=== PATIENT | male | born 1995 | race Caucasian/White ===

== ENCOUNTER 2024-05-22 14:27 | Outpatient (REF) | payer MEDICAID, SELFPAY ==
--- NOTE | ~2024-05-22 | XR_ITS ---
EXAMINATION: XR CHEST CLINICAL INFORMATION: Cough, shortness of breath COMPARISON: None available. TECHNIQUE: 2 views of the chest were obtained. FINDINGS: No significant abnormality is noted involving the heart, lungs, mediastinum, bony thorax or soft tissues. XR/XR chest 2V IMPRESSION: Unremarkable examination. Electronically signed by: Dianna Salinas MD 06/14/2024 01:16 PM EDT RP
[2024-05-22 15:02] LABS: MANUAL DIFF FLAG NO
[2024-05-22 15:15] LABS: Basophils Absolute Auto 0.1 X10*3/uL (0.0-0.2); Basophils Percent Auto 0.9 % (0-2); Eosinophils Absolute Auto 0.2 X10*3/uL (0.0-0.4); Eosinophils Percent Auto 2.7 % (0-4); Hematocrit 46.4 % (42.0-52.0); Hemoglobin 15.6 g/dl (14.0-18.0); Imm Gran Abs Auto 0.03 X10*3/uL (0.00-0.03); Imm Gran Pct Auto 0.4 % (0.0-0.4); Lymphocytes Absolute Auto 2.3 X10*3/uL (1.2-4.9); Lymphocytes Percent Auto 30.8 % (20-40); Mean Corpuscular HGB Conc 33.6 g/dl (31.0-36.0); Mean Corpuscular Hemoglobin 29.8 pg (27.0-33.0); Mean Corpuscular Volume 88.7 fL (80.0-98.0); Mean Platelet Volume 9.1 fL (9.4-12.4); Monocytes Absolute Auto 0.7 X10*3/uL (0.1-1.2); Monocytes Percent Auto 9.1 % (2-11); Neutrophils Absolute Auto 4.2 x10*3/uL (2.0-8.3); Neutrophils Percent Auto 56.1 % (45-73); Platelet Count 314 X10*3/uL (160-400); Red Blood Count 5.23 X10*6/uL (4.60-5.80); Red Cell Distribution Width 13.3 % (11.0-16.0); White Blood Count 7.5 X10*3/uL (4.8-10.8)
[2024-05-22 15:45] LABS: Alanine Aminotransferase 10 U/L (0-40); Albumin Level 4.5 g/dL (3.5-5.0); Alkaline Phosphatase 67 U/L (39-117); Anion Gap 11 (12-20); Aspartate Amino Transferase 15 U/L (5-37); Bilirubin Total 0.5 mg/dL (0.0-1.0); Blood Urea Nitrogen 7 mg/dL (9-16); Calcium 9.6 mg/dL (8.4-10.2); Carbon Dioxide 25 mmol/L (22-29); Chloride 107 mmol/L (96-108); Estimated Glomerular Filt Rate > 60; Glucose Random 83 mg/dL (60-115); Potassium 4.5 mmol/L (3.3-5.1); Sodium 138 mmol/L (135-145); Total Protein 7.5 g/dL (6.5-8.0)
[2024-05-22 16:02] LABS: Free T4 (Free Thyroxine) 0.85 ng/dL (0.71-1.85); Thyroid Stimulating Hormone 1.31 uIU/mL (0.32-4.0)
[2024-05-22 17:07] LABS: Estimated Average Glucose 100 mg/dL; Hemoglobin A1c % 5.1 % (<6.0)
[2024-05-22 17:33] LABS: Appearance Urine Clear; Color Urine Dark Yellow; Glucose Urine UA Negative (Negative); Leukocyte Esterase Urine Negative (Negative); Nitrite Urine Negative (Negative); Specific Gravity - Urine 1.025 (1.005-1.025); Urine Blood Negative (Negative); Urine Ketones Trace mg/dL (Negative); Urine Protein Negative (Neg-Trace)
[2024-05-23 08:39] LABS: Triiodothyronine T3 Free 3.4 pg/mL (2.3-4.2)
[2024-05-25 16:18] LABS: VITAMIN D (1,25 OH) D3 29 pg/mL; Vit D (1,25-Dihydroxy) Total 29 pg/mL (18-72); Vitamin D (1,25 OH) D2 <8 pg/mL
== END 2024-05-22 14:28 | disposition home or self-care (01) ==
LOC: HO.XRAY 14:27
PROVIDERS: Absent Provider Nurse Practitioner Primary Care; Visit Provider Allergy & Immunology
DX: F90.8 Attention-deficit hyperactivity disorder, other type (principal); R19.4 Change in bowel habit; R63.4 Abnormal weight loss; Z80.9 Family history of malignant neoplasm, unspecified; R05.9 Cough, unspecified; R06.02 Shortness of breath
CPT/HCPCS: 36415; 71046; 80053; 81003; 82652; 83036; 84439; 84443; 84481; 85025

== ENCOUNTER 2024-11-12 16:04 | Outpatient (AMB) | payer OTHER, SELFPAY ==
--- NOTE | 2024-11-12 16:14 | MHC.OFFVIS ---
Vital Signs 11/12/24 16:19 Height 5 ft 10 in Weight 171 lb 15.369 oz BMI 24.7 BP 124/74 Blood Pressure Location Rt brachial Position Sitting Pulse 78 Pulse Source Pulse Oximeter Pulse Oximetry (%) 100 Oxygen Delivery Method Room Air Intake Visit Reasons: abnormal weight loss / Change in bowel habits Intake Note: NEW PATIENT for Initial assessment. Fecal abn + weight loss Prior hx of colo/egd? N Chief Complaint; C/O mild fecal abn and nausea intermittently. Pt has made multiple diet changes over the last 1-2 years which seems to have an impact on his GI functionality. Pt reports FMHx (mother), from metastatic colon cancer. Pt denies any additional concerns. Body And Fender Mechanic Apprentice Required: No Accompanied by: Self / Same As Patient Allergies Seasonal Allergies Allergy (Mild, Verified 11/08/24 13:13) Runny Nose HPI HPI abnormal weight loss / Change in bowel habits: Details: 29-year-old male with no significant past medical history is here today for initial consultation. Patient was sent to us by his PCP for evaluating of his ongoing symptoms. Patient reports that in the past few years he has done a lot of changes in his diet. Patient no longer is eating things that are high in sugar. Since his mom of colorectal cancer he did a lot of changes. He has lost about 50 lb in the last 2 years. Patient usually eats 2 meals a day. He has breakfast and then throughout the day he does not eat till about 4 or 17:00. Patient has noticed that when he has soft drink he will have epigastric pain and bloating. Patient also reports occasional diarrhea however most of the time related to food. Patient is trying to eat healthy. Otherwise reports to have a good appetite. Epigastric pain postprandially when eating food containing lactose or high in sugar. Patient is trying to avoid culprits. Patient reports that his mom was diagnosed with colorectal cancer early in her 30s. Patient was in remission and then she refused to go for colonoscopy is and in her 50s with colorectal cancer and liver cancer. Patient is little anxious about going for procedure himself. Patient reports that his mom said that she had the cancer because they took pre cancerous polyps and that spread the cancer. Long discussion with patient about how important it is to go for colonoscopy is as recommend that by ACG. Patient denies melena, hematochezia. Denies dyspepsia, dysphagia or odynophagia. Denies any issues with anesthesia in the past. Denies any history of sleep apnea. Not on any anticoagulation medication. Denies any cardiac or respiratory symptoms. [facility] Medical History Asthma Family History Mother Metastatic colon cancer to liver Social History Alcohol intake: current Comment: Socially Patient Tobacco Use Status: Current someday Tobacco user Tobacco use type: Cigar Substance Use Type: Marijuana Review of Systems Const Denies weight gain and Denies weight loss ENT Reports no additional complaints, Denies dysphagia and Denies odynophagia Card Reports no additional complaints Resp Reports no additional complaints GI Reports abdominal pain (Epigastric occasionally), Denies belching, Denies melena, Denies bloating, Denies change in bowel habits, Denies dysphagia, Denies excessive flatus, Denies dyspepsia, Denies heartburn, Denies diarrhea, Reports loose stools (Occasionally), Denies nausea, Denies odynophagia and Denies vomiting Reports no additional complaints Musc Reports no additional complaints Neuro Reports no additional complaints Psych Reports no additional complaints Endo Reports no additional complaints Physical Exam Vital Signs: Last Vital Signs Pulse 78 11/12/24 16:19 BP 124/74 11/12/24 16:19 Pulse Ox 100 11/12/24 16:19 Oxygen Delivery Method Room Air 11/12/24 16:19 BMI result Body Mass Index 24.7 Const General: healthy appearing, no acute distress and well developed Nutritional Appearance: well nourished Orientation/consciousness: patient oriented x3 Resp Effort & Inspection: normal respiratory effort, able to speak in complete sentences, no tracheal deviation and symmetric chest movement Auscultation: clear to auscultation bilaterally Cardio Rate: regular rate GI Inspection: Yes normal to inspection and No distended Palpation (GI): Soft to palpation, not firm, nontender and No hepatosplenomegaly present Auscultation: normal bowel sounds General: Yes no CVA tenderness Back/Spine/Pelvis Back: no CVA tenderness Skin General skin exam: elasticity normal, turgor normal and dry skin Neuro General: patient oriented x3 Psych Appearance: grossly normal Mental Status: mental status grossly normal Affect: Anxious affect present Assessment & Plan Assessment & Plan (1) Family history of colorectal cancer: Code(s): Z80.0 - Family history of malignant neoplasm of digestive organs (2) Postprandial epigastric pain: Code(s): R10.13 - Epigastric pain (3) GERD (gastroesophageal reflux disease): Code(s): K21.9 - Gastro-esophageal reflux disease without esophagitis Qualifiers: Esophagitis presence: esophagitis presence not specified Qualified Code(s): K21.9 - Gastro-esophageal reflux disease without esophagitis (4) Postprandial abdominal bloating: Code(s): R14.0 - Abdominal distension (gaseous) Plan Patient will be sent for colonoscopy due to high risk, family history of CRC. Patient's mom was diagnosed with colorectal cancer in her 30s, in remission for several years, diagnosed again with CRC in her 50s. Patient is very anxious and unsure if he should go for the procedure. Long discussion with him about the importance of screening specially with his history. Patient denies any melena, hematochezia, unintentional weight loss or ribbon like stools. Patient lost weight as he changed his diet. The weight loss was over couple years. He is eating very small breakfast and then and no meal until dinnertime. Patient stays busy throughout the day working. Patient is very worried as he does not have anyone to bring him to colonoscopy. Spoke to him RN who will try to arrange for transportation to pick patient up and bring him back home after the procedure. Message sent to Surgical schedules to bulk procedure for patient. Patient will return in 2 months to re-evaluate. We did discuss prep today and he received instructions, however patient seems extremely anxious and we will need to go over the instructions with him again. Patient will call our office if he will have any concerns. Discussed with him also FODMAP diet. List of food recommended as well as list of food to avoid given to patient. Patient was advised to stay away from milk for now. Multiple food allergies, seen by Allergy and immunology in the past. Patient is agreeable to current plan of care and verbalizes understanding of instructions. He was given the opportunity to ask questions and all questions answered. Thank you for allowing me to participate in his care Medications: New bisacodyl (Dulcolax (bisacodyl)) take 4 tabs at noon the day before your colonoscopy 20 mg (4 x 5 mg) PO ONCE 4 tabs 0RF 1 day Z12.11 - Encounter for screening for malignant neoplasm of colon polyethylene glycol 3350 (Miralax) As directed by gastro[facility]ology department at [facility] 238 grams PO ONCE 238 grams 0RF Z12.11 - Encounter for screening for malignant neoplasm of colon Coding Level of Care Code New Pt Level 4 (01225) Diagnoses Family history of colorectal cancer Z80.0 Postprandial epigastric pain R10.13 Gastroesophageal reflux disease, unspecified whether esophagitis present K21.9 Esophagitis presence: esophagitis presence not specified Postprandial abdominal bloating R14.0 Time Spent (min) 45 Comment 35 minute spent with patient and additional 10 minutes spent reviewing his records
[2024-11-12 16:19] VITALS: BP 124/74; PULSE 78; O2SAT 100; BMI 24.7
--- OUTSIDE RECORDS SUMMARY | 2024-11-12 18:46 | XMS_ITS | Clinical Summary ---
Author Organization [facility] Address [address] [place] [phone] Phone Care Team Providers Care Passenger Car Inspector Name Role Phone Unavailable Primary Care Provider Unavailabl e Immunizations Immunization Administration Dates Next Due DTaP 03/30/2000, 7,03/12/1996,01/09,1995 Hep B, ped/adol 06/08/1996,1995,1995 Hib (PRP-T) 12/17/1996, 6,01/10/1996,11/14 IPV 03/30/2000 Influenza, injectable, quadrivalent 08/28/2013,1 10/23/2011 MMR 03/30/2000,09/14/1996 Meningococcal Conj (Menactra) MCV4P 08/22/2012,0 03/26/2008 OPV 03/12/1996,01/10/1996,1995 Td (adult) (Tenivac), 5 Lf t etanus toxoid, PF, adsorbed 01/12/2005 Tdap 08/28/2013 Varicella 03/26/2008,03/30/2000 Family History Relation Name Status Comments Father Alive healthy Maternal Grandfather Alive hyperte nsion, hyperlipidemia, DM Maternal Grandmother Mother Alive hyperlipidemia; colon cancer had chemo. Other Alive Siblings: healt hy Paternal Grandfather Alive DM Paternal Grandmother Alive healthy osteoporosis Social History Tobacco Use Types Packs/Day Years Used Date Smoking Tobacco: Never Assessed Sex and Gender Information Value Date Recorded Sex Assigned at Not on file Legal Sex Male 6:23 PM EDT Gender Identity Not on file Sexual Orientation Not on file Last Filed Vital Signs Vital Sign Reading Time Taken Comments Blood Pressure 116/68 08/28/2013 12:00 AM EST Pulse - - Temperature 36.3 ??C (97.4 ??F) 05/30/2013 12:00 AM E DT Respiratory Rate - - Oxygen Saturation - - Inhaled Oxygen Concentration - - Weight 85.8 kg (189 lb 3.2 oz) 08/28/2013 12:00 AM EST Height 176.5 cm (5' 9.5 ) 08/28/2013 12:00 AM ES T Body Mass Index 27.54 08/28/2013 12:00 AM EST Plan of Treatment Health Maintenance Due Date Last Done Comments Consider Men B Vaccine (1 of 2 - Bexsero 2-dose series) 2011 DTaP,Tdap,and Td Vaccines (7 - Td or Tdap) 08/28/2023 08/28/2013, 01/12/2005, 03/30/2000, Additional history exists Influenza Vaccines (#1) 2024 08/28/2013, 08/22 COVID-19 Vaccine ( season) 2024 Hepatitis B Vaccines Completed 06/08/1996, 1995, 1995 HIB Vaccines Completed 12/17/1996, 09/1995, 01/10/1996, Additional history exists IPV Vaccines Completed 03/30/2000, 09/1995, 01/10/1996, Additional history exists MMR Vaccines Completed 03/30/2000, 09/14/1996 Varicella Vaccines Completed 03/26/2008, 03/30/2000 Meningococcal Vaccine Completed 08/22/2012, 008 HPV Vaccines Aged Out No longer eligi ble based on patient's age to complete this topic Hepatitis A Vaccines Aged Out No long er eligible based on patient's age to complete this topic Men B Vaccine Aged Out No longer elig ible based on patient's age to complete this topic Pneumococcal Vaccine Aged Out No long er eligible based on patient's age to complete this topic
--- OUTSIDE RECORDS SUMMARY | 2024-11-12 18:46 | XMS_ITS | Encounter Summary ---
Author Organization [facility] Address [address] [place] [phone] Phone Care Team Providers Care Stock Lifter Name Role Phone Unavailable Primary Care Provider Unavailabl e Encounter Details Date Type Department Care Team (Late st Contact Info) Description 01/29/2018 Conversion [facility]counter [facility] [address] [address] Social History Tobacco Use Types Packs/Day Years Used Date Smoking Tobacco: Never Assessed Sex and Gender Information Value Date Recorded Sex Assigned at Not on file Legal Sex Male 6:23 PM EDT Gender Identity Not on file Sexual Orientation Not on file documented as of this encounter Plan of Treatment Not on file documented as of this encounter Visit Diagnoses Not on filedocumented in this encounter
--- OUTSIDE RECORDS SUMMARY | 2024-11-12 18:46 | XMS_ITS | Clinical Summary ---
Author Organization [address] [facility] Address [address] [place] [address] Phone Care Team Providers Care Crystalizer Name Role Phone Frida Mullins NP Primary Care Provider [phone] Social History Tobacco Use Types Packs/Day Years Used Date Smoking Tobacco: Never Assessed Sex and Gender Information Value Date Recorded Sex Assigned at Not on file Legal Sex Male 3:11 PM EDT Gender Identity Not on file Sexual Orientation Not on file Plan of Treatment Health Maintenance Due Date Last Done Comments DTaP,Tdap,and Td Vaccines (1 - Tdap) 2014 Hepatitis B Vaccines (1 of 3 - 19+ 3-dose series) 2014 COVID-19 Vaccine ( - 2023-2 5 season) 2024 Influenza Vaccine (#1) 2024 Depression Screening 07/11/2024 HIV Screening 07/11/2024 Hepatitis C Screening 07/11/2024 Social Influencers of Health Screening 07/11/2024 HIB Vaccines Aged Out No longer eligi ble based on patient's age to complete this topic HPV Vaccines Aged Out No longer eligi ble based on patient's age to complete this topic Hepatitis A Vaccines Aged Out No long er eligible based on patient's age to complete this topic IPV Vaccines Aged Out No longer eligi ble based on patient's age to complete this topic MMR Vaccines Aged Out No longer eligi ble based on patient's age to complete this topic Meningococcal ACWY Vaccine Aged Out N o longer eligible based on patient's age to complete this topic Meningococcal B Vacine Aged Out No lo nger eligible based on patient's age to complete this topic Pneumococcal Vaccine: Pediat rics (0 to 5 Years) and At-Risk Patients (6 to 64 Years) Aged Out No longer eligible b ased on patient's age to complete this topic RSV Immunization Patients Un kobe 20 months Aged Out No longer eligible b ased on patient's age to complete this topic Varicella Vaccines Aged Out No longer eligible based on patient's age to complete this topic Care Teams Crystalizer Relationship Specialty Start Date End Date Frida Mullins NP [address] [facility] [address] [place] [address] PCP - General 07/10/24
== END 2024-11-12 16:53 | disposition home or self-care (01) ==
PROVIDERS: PCP Hospitalist; Visit Provider Nurse Practitioner Family
DX: Z80.0 Family history of malignant neoplasm of digestive organs (principal); R10.13 Epigastric pain; K21.9 Gastro-esophageal reflux disease without esophagitis; R14.0 Abdominal distension (gaseous)
CPT/HCPCS: 99204

== ENCOUNTER → 2024-11-12 16:04 | Outpatient (BNVA) | payer OTHER, SELFPAY | PROVIDERS: PCP Hospitalist; Visit Provider Nurse Practitioner Family | DX: K21.9 Gastro-esophageal reflux disease without esophagitis (principal); R10.13 Epigastric pain; R14.0 Abdominal distension (gaseous); Z80.0 Family history of malignant neoplasm of digestive organs | CPT/HCPCS: 99202 ==

== ENCOUNTER 2025-01-21 14:59 | Outpatient (AMB) | payer OTHER, SELFPAY ==
--- NOTE | 2025-01-21 15:01 | A.OFFVIS_ITS ---
Vital Signs 01/21/25 15:09 Height 5 ft 10 in Weight 170 lb BMI 24.4 BP 126/70 Blood Pressure Location Rt brachial Position Sitting Pulse 74 Pulse Source Pulse Oximeter Pulse Oximetry (%) 99 Oxygen Delivery Method Room Air Intake Visit Reasons: 2 MO F/U Intake Note: ESTABLISHED PATIENT for fecal abn mgmt. Pre op appt. Chief Complaint; Pt is unable to determine if there are any new sx or concerns. Pt states that there is a lot of inconsistency in his day to day presentation and is unsure if it has been worse or remained stable since last visit. Event Coordinator Required: No Accompanied by: Self / Same As Patient Allergies Seasonal Allergies Allergy (Mild, Verified 01/21/25 15:06) Runny Nose HPI HPI 2 MO F/U: Details: LAST VISIT Family history of colorectal cancer Postprandial epigastric pain GERD (gastroesophageal reflux disease) Postprandial abdominal bloating Plan Patient will be sent for colonoscopy due to high risk, family history of CRC. Patient's mom was diagnosed with colorectal cancer in her 30s, in remission for several years, diagnosed again with CRC in her 50s. Patient is very anxious and unsure if he should go for the procedure. Long discussion with him about the importance of screening specially with his history. Patient denies any melena, hematochezia, unintentional weight loss or ribbon like stools. Patient lost weight as he changed his diet. The weight loss was over couple years. He is eating very small breakfast and then and no meal until dinnertime. Patient stays busy throughout the day working. Patient is very worried as he does not have anyone to bring him to colonoscopy. Spoke to him RN who will try to arrange for transportation to pick patient up and bring him back home after the procedure. Message sent to Surgical schedules to bulk procedure for patient. Patient will return in 2 months to re-evaluate. We did discuss prep today and he received instructions, however patient seems extremely anxious and we will need to go over the instructions with him again. Patient will call our office if he will have any concerns. Discussed with him also FODMAP diet. List of food recommended as well as list of food to avoid given to patient. Patient was advised to stay away from milk for now. Multiple food allergies, seen by Allergy and immunology in the past. Patient is agreeable to current plan of care and verbalizes understanding of instructions. He was given the opportunity to ask questions and all questions answered. ? Thank you for allowing me to participate in his care Medications New bisacodyl (Dulcolax (bisacodyl)) take 4 tabs at noon the day before your colonoscopy 20 mg (4 x 5 mg) PO ONCE 4 tabs 0RF 1 day Z12.11 polyethylene glycol 3350 (Miralax) As directed by gastroenterology department at [facility] 238 grams PO ONCE 238 grams 0RF Z12.11 TODAY'S VISIT Patient is here today for follow-up and to discuss going for colonoscopy. Colonoscopy scheduled for next week. Patient ready has prep at home. Directio ns on how to prep and about clear liquid diet discussed with him last visit and will discuss again today. Patient continues to have occasional loose stools postprandially and occasional abdominal bloating. Patient reports that he stop drinking soda. Mainly drinks water. Patient is no longer eating chips or snacks. Mainly he is eating meals home cook only. Patient does have a list of low FODMAP foods, and not much chance of going through. Trying to figure out what works for him. [facility] Medical History Asthma Family History Mother Metastatic colon cancer to liver Social History Alcohol intake: current Comment: Socially Patient Tobacco Use Status: Current someday Tobacco user Tobacco use type: Cigar Substance Use Type: Marijuana Review of Systems Const Denies weight gain and Denies weight loss ENT Reports no additional complaints, Denies dysphagia and Denies odynophagia Card Reports no additional complaints Resp Reports no additional complaints GI Reports abdominal pain (Epigastric occasionally), Denies belching, Denies melena, Denies bloating, Denies change in bowel habits, Denies dysphagia, Denies excessive flatus, Denies dyspepsia, Denies heartburn, Denies diarrhea, Reports loose stools (Occasionally), Denies nausea, Denies odynophagia and Denies vomiting Reports no additional complaints Musc Reports no additional complaints Neuro Reports no additional complaints Psych Reports no additional complaints Endo Reports no additional complaints Physical Exam Const General: healthy appearing, no acute distress and well developed Nutritional Appearance: well nourished Orientation/consciousness: patient oriented x3 Resp Effort & Inspection: normal respiratory effort, able to speak in complete sentences, no tracheal deviation and symmetric chest movement Auscultation: clear to auscultation bilaterally Cardio Rate: regular rate GI Inspection: Yes normal to inspection and No distended Palpation (GI): Soft to palpation, not firm, nontender and No hepatosplenomegaly present Auscultation: normal bowel sounds General: Yes no CVA tenderness Back/Spine/Pelvis Back: no CVA tenderness Skin General skin exam: elasticity normal, turgor normal and dry skin Neuro General: patient oriented x3 Psych Appearance: grossly normal Mental Status: mental status grossly normal Affect: Anxious affect present Assessment & Plan Assessment & Plan (1) Family history of colorectal cancer: Code(s): Z80.0 - Family history of malignant neoplasm of digestive organs (2) Postprandial epigastric pain: Code(s): R10.13 - Epigastric pain (3) GERD (gastroesophageal reflux disease): Code(s): K21.9 - Gastro-esophageal reflux disease without esophagitis Qualifiers: Esophagitis presence: esophagitis presence not specified Qualified Code(s): K21.9 - Gastro-esophageal reflux disease without esophagitis (4) Postprandial abdominal bloating: Code(s): R14.0 - Abdominal distension (gaseous) Plan Plan for colonoscopy on Tuesday next week. Went over fall to prep. What to expect before during and after procedure discussed with patient. Stressed the importance of good bowel prep in clear liquid diet day before procedure. Patient will continue to avoid dietary triggers when it comes to his IBS. Patient has a very busy life working 3 jobs trying to support his sister. Patient will follow-up in the office after the procedure, sooner on as needed basis. He is agreeable to this plan and verbalizes understanding of instructions. He was given the opportunity to ask questions and all questions answered. Thank you for allowing me to participate in his care Coding Level of Care Code Est Pt Level 4 (37972) Complex EM visit Add On G2211 Diagnoses Family history of colorectal cancer Z80.0 Postprandial epigastric pain R10.13 Gastroesophageal reflux disease, unspecified whether esophagitis present K21.9 Esophagitis presence: esophagitis presence not specified Postprandial abdominal bloating R14.0 Time Spent (min) 35 Comment 25 minutes spent with patient and additional 10 minutes spent reviewing his records
--- OUTSIDE RECORDS SUMMARY | 2025-01-21 15:04 | XMS_ITS | Clinical Summary ---
Author Organization [address] [facility] Address [address] [place] [address] Phone Care Team Providers Care Coal Trammer Name Role Phone Frida Mullins NP Primary Care Provider [phone] Social History Tobacco Use Types Packs/Day Years [...] age to complete this topic Care Teams Coal Trammer Relationship Specialty Start Date End Date Frida Mullins NP [address] [facility] [address] [place] [address] PCP - General 07/10/24
--- OUTSIDE RECORDS SUMMARY | 2025-01-21 15:04 | XMS_ITS | Clinical Summary ---
Author Organization [facility] Address [address] [place] [phone] Phone Care Team Providers Care Ms Sql Dba Name Role Phone Unavailable Primary Care Provider [...]
--- OUTSIDE RECORDS SUMMARY | 2025-01-21 15:04 | XMS_ITS | Encounter Summary ---
Author Organization [facility] Address [address] [place] [phone] Phone Care Team Providers Care Manager Administrative Name Role Phone Unavailable Primary Care Provider Unavailabl e Encounter Details Date Type Department Care Team (Late st Contact Info) Description 01/29/2018 Conversion Encounter [facility] [address] [address] Social History Tobacco Use Types Packs/Day Years [...]
--- OUTSIDE RECORDS SUMMARY | 2025-01-21 15:04 | XMS_ITS | Clinical Summary ---
Author Organization [employer] Address [address] [place] [address] [address] [place] [address] Care Team Providers Care Filling Machine Tender Name Role Phone Unavailable Primary Care Provider Unavailabl e Allergies No known active allergies Medications Advair HFA 230-21 MCG/ACT inhaler Inhale 2 puffs 2 times daily. 10/18/2024 Active Active Problems Problem Noted Date Diagnosed Date Asthma 01/08/2025 Encounters Date Type Department Care Team Description 01/08/2025 3:00 PM EDT Office Visit [facility] [address] [place] [address] Adiel Swartz DMD Mild intermittent asthma, unspecified whether complicated (Primary Dx) 11/20/2024 3:00 PM EDT Office Visit [facility] [address] [place] [address] Allison Jefferson from Last 3 Months Social [...] Sign Reading Time Taken Comments Blood Pressure 130/80 01/08/2025 3:07 PM EDT Pulse 87 11/20/2024 3:27 PM EDT Temperature - - Respiratory Rate - - Oxygen Saturation - - Inhaled Oxygen Concentration - - Weight - - Height - - Body Mass Index - - Plan of Treatment Upcoming Encounters Date Type Department Care Team (Late st Contact Info) Description 05/27/2025 4:00 PM EDT Office Visit [facility] [address] [place] [address] Allison Jefferson [address] [place], [place] [id number] Health Maintenance Due Date Last Done Comments Depression Screening 1995 HIV Screening 1995 SDOH Screening 1995 Alcohol/Substance Use Screening 2007 Family Planning (PISQ) 2010 Hepatitis C Screening 2013 Pneumococcal Vaccine: Pediatrics (0 to 5 Years) and At-Risk Patients (6 to 49) Years) (1 of 2 - PCV) 2014 DTaP/Tdap/Td Vaccines (7 - Td or Tdap) 08/28/2023 08/28/2013, 01/12/2005, 03/30/2000, Additional history exists COVID-19 Vaccine ( - season) 2024 Influenza Vaccine (#1) 2024 08/28/2013, 2011 Dental Oral Exam 05/24/2025 11/20/2024 Dental Prophylaxis 05/24/2025 11/20/2024 Dental X-Ray: Bitewings 11/21/2025 11/20/2024, 10/21 Tobacco Screening 01/08/2026 01/08/2025 Dental X-Ray: Full Mouth 11/22/2027 11/20/2024 Zoster Vaccines (1 of 2) 2045 RSV Patients and Patients Aged 60 years or older (1 - 1-dose 75+ series) 2070 Hepatitis B Vaccines Completed 06/08/1996, 1995, 1995 HIB Vaccines Completed 12/17/1996, 0 09/1995, 01/10/1996, Additional history exists IPV Vaccines Completed 03/30/2000, 0 09/1995, 01/10/1996, Additional history exists Meningococcal Vaccine Completed 08/22/2012, 008 HPV Vaccines [...] Procedure Name Priority Date/Time Associated Diagnosis Comments CASE PRESENTATION, DETAILED AND EXTENSIVE TREATMENT PLANNING Routine 01/08/2025 3:00 PM EDT 19 O RESIN-BASED COMPOSITE - 1 SURF, POSTERIOR Routine 01/08/2025 3:00 PM EDT 14 O RESIN-BASED COMPOSITE - 1 SURF, POSTERIOR Routine 01/08/2025 3:00 PM EDT PERIODIC ORAL EVALUATION - ESTABLISHED PATIENT Routine [...] 3 Months Insurance [facility] [facility]
[2025-01-21 15:09] VITALS: BP 126/70; PULSE 74; O2SAT 99; BMI 24.4
== END 2025-01-21 15:19 | disposition home or self-care (01) ==
LOC: HO.HGI 14:59
PROVIDERS: Visit Provider Nurse Practitioner Family
DX: Z80.0 Family history of malignant neoplasm of digestive organs (principal); R10.13 Epigastric pain; K21.9 Gastro-esophageal reflux disease without esophagitis; R14.0 Abdominal distension (gaseous)
CPT/HCPCS: 99214; G2211

== ENCOUNTER → 2025-01-21 14:59 | Outpatient (BNVA) | payer OTHER, SELFPAY | PROVIDERS: Visit Provider Nurse Practitioner Family | DX: K21.9 Gastro-esophageal reflux disease without esophagitis (principal); R10.13 Epigastric pain; R14.0 Abdominal distension (gaseous); Z80.0 Family history of malignant neoplasm of digestive organs | CPT/HCPCS: 99212 ==

== ENCOUNTER 2025-01-29 08:26 | Day surgery (SDC) | payer OTHER, SELFPAY ==
--- OUTSIDE RECORDS SUMMARY | 2025-01-04 13:59 | XMS_ITS | Clinical Summary ---
Author Organization [facility] Address [address] [place] [phone] Phone Care Team Providers Care Etl Software Engineer Name Role Phone Unavailable Primary Care Provider [...] Date Last Done Comments DTaP,Tdap,and Td Vaccines (7 - Td or Tdap) 08/28/2023 08/28/2013, 01/12/2005, 03/30/2000, Additional history exists Influenza Vaccines (#1) 2024 08/28/2013, 08/22 COVID-19 Vaccine ( season) 2024 Hepatitis B Vaccines Completed 06/08/1996, 1995, 1995 HIB Vaccines Completed 12/17/1996, 0 09/1995, 01/10/1996, Additional history exists IPV Vaccines Completed 03/30/2000, 0 09/1995, 01/10/1996, Additional history exists MMR Vaccines [...]
--- OUTSIDE RECORDS SUMMARY | 2025-01-04 13:59 | XMS_ITS | Clinical Summary ---
Author Organization [address] [facility] Address [address] [place] [address] Phone Care Team Providers Care Methane Gas Collection System Operator Name Role Phone Frida Mullins NP Primary Care Provider [phone] Social History Tobacco Use Types Packs/Day Years [...] Vaccine ( - 2023-2 5 season) 2024 Depression Screening 07/11/2024 HIV Screening 07/11/2024 Hepatitis C Screening 07/11/2024 Social Influencers of Health Screening 07/11/2024 Influenza Vaccine (Season Ended) 2025 HIB Vaccines Aged Out No longer eligi [...] age to complete this topic Meningococcal B Vaccine Aged Out No l onger eligible based on patient's age to complete this topic Pneumococcal Vaccine: Pediat rics (0 to 5 Years) and At-Risk Patients (6 to 64 Years) Aged Out No longer eligible b ased on patient's age to complete this topic RSV Immunization Patients Un okbe 20 months Aged Out No longer eligible b ased on patient's age to complete this topic Varicella Vaccines Aged Out No longer eligible based on patient's age to complete this topic Care Teams Methane Gas Collection System Operator Relationship Specialty Start Date End Date Frida Mullins NP [address] [facility] [address] [place] [address] PCP - General 07/10/24
--- OUTSIDE RECORDS SUMMARY | 2025-01-04 13:59 | XMS_ITS | Encounter Summary ---
Author Organization [facility] Address [address] [place] [phone] Phone Care Team Providers Care Dairy Processing Supervisor Name Role Phone Unavailable Primary Care Provider Unavailabl e Encounter Details Date Type Department Care Team (Late st Contact Info) Description 01/29/2018 Conversion [facility]counter [facility] [address] [address] Social History Tobacco Use Types Packs/Day Years [...]
--- OUTSIDE RECORDS SUMMARY | 2025-01-04 13:59 | XMS_ITS | Clinical Summary ---
Author Organization [employer] Address [address] [place] [address] Care Team Providers Care Fund Development Manager Name Role Phone Unavailable Primary Care Provider Unavailabl e Allergies No known active allergies Medications Advair HFA 230-21 MCG/ACT inhaler Inhale 2 puffs 2 times daily. 10/18/2024 Active Encounters Date Type Department Care Team Description 11/20/2024 3:00 PM EDT Office Visit [facility] [address] [place] [address] [phone] Allison Jefferson from Last 3 Months Social History Tobacco Use Types Packs/Day Years Used Date Smoking Tobacco: Unknown Tobacco Cessation:Counseling Given: Not Answered Sex and Gender Information Value Date Recorded Sex Assigned at Male 10/20/2022 2:58 PM EST Legal Sex Male 2:55 PM EST Gender Identity Male 10/20/2022 2:58 PM EST Sexual Orientation Straight 10/21/2022 8: 21 AM EST Last Filed Vital Signs Vital Sign Reading Time Taken Comments Blood Pressure 118/76 11/20/2024 3:27 PM EDT Pulse 87 11/20/2024 3:27 PM EDT Temperature - - Respiratory Rate - - Oxygen Saturation - - Inhaled Oxygen Concentration - - Weight - - Height - - Body Mass Index - - Plan of Treatment Upcoming Encounters Date Type Department Care Team (Late st Contact Info) Description 01/08/2025 3:00 PM EDT Office Visit [facility] [address] [place] [address] [phone] Adiel Swartz DMD [address] [place], [place] [phone] 05/27/2025 4:00 PM EDT Office Visit [facility] [address] [place], [place] [phone] Li, Allison [address] [place], [place] [phone] Health Maintenance Due Date Last Done Comments Depression Screening 1995 HIV Screening 1995 SDOH Screening 1995 Alcohol/Substance Use Screening 2007 Family Planning (PISQ) 2010 Hepatitis C Screening 2013 DTaP/Tdap/Td Vaccines (1 - Tdap) 2014 Hepatitis B Vaccines (1 of 3 - 19+ 3-dose series) 2014 COVID-19 Vaccine ( - 2023-2 5 season) 2024 Influenza Vaccine (#1) 2024 Dental Oral Exam 05/24/2025 11/20/2024 Dental Prophylaxis 05/24/2025 11/20/2024 Tobacco Screening 11/20/2025 11/20/2024 Dental X-Ray: Bitewings 11/21/2025 11/21/19 25, 10/21/2022 Dental X-Ray: Full Mouth 11/22/2027 11/20/2024 Zoster Vaccines (1 of 2) 2045 RSV Patients and Patients Aged 60 years or older (1 - 1-dose 75+ series) 2070 HIB Vaccines Aged Out No longer eligi [...] patient's age to complete this topic Meningococcal Vaccine Aged Out No davion nitin eligible based on patient's age to complete this topic Pneumococcal Vaccine: Pediatrics (0 to 5 Years) and At-Risk Patients (6 to 49) Years) Aged Out No longer eligible b ased on patient's age to complete this topic RSV under 20 months Aged Out No longe r eligible based on patient's age to complete this topic Rotavirus Vaccines Aged Out No longer eligible based on patient's age to complete this topic Procedures Procedure Name Priority Date/Time Associated Diagnosis Comments PERIODIC ORAL EVALUATION - ESTABLISHED PATIENT Routine 11/20/2024 3:00 PM EDT PROPHYLAXIS - ADULT Routine 11/20/2024 3 :00 PM EDT INTRAORAL - COMPLETE SERIES OF RADIOGRAPHIC IMAGES Routine 11/20/2024 3:00 PM EDT 19 B COMPOSITE FILLING Routine 12:00 AM EDT 18 O COMPOSITE FILLING Routine 12:00 AM EDT 5 DO COMPOSITE FILLING Routine 12:00 AM EDT 9 L COMPOSITE FILLING Routine 11/20/2024 12:00 AM EDT 32 EXTRACTION Routine 11/20/2024 12:00 AM EDT 17 EXTRACTION Routine 11/20/2024 12:00 AM EDT 16 EXTRACTION Routine 11/20/2024 12:00 AM EDT 1 EXTRACTION Routine 11/20/2024 12:00 AM EDT from Last 3 Months Insurance [facility] ST[place] AD[facility]
[2025-01-25 13:41] VITALS: BMI 24.4
[2025-01-29 08:56] VITALS: BMI 25.1
[2025-01-29] MEDS: Lactated Ringers 1,000 ML 100 ML IVCONT (09:04)
[2025-01-29] MEDS: Albuterol Sulfate (0.083%) 2.5 MG/3 ML VIAL.NEB INHALE (09:06)
[2025-01-29 09:12] VITALS: BP 115/79; PULSE 66; RESP 18; TEMP 36.4; O2SAT 98
--- NOTE | 2025-01-29 09:41 | MHC.SHP ---
Pre-Procedural Eval Section A - 24 Hr Update-Section A only Date of Service: 01/29/25 Section B - Complete if H&P > 30 days Chief Complaint: Abdominal distension (gaseous),malignant neoplasm Relevant Family History (Specify if Yes): Yes Relevant Social History: Other (specify) (thc) Present Medications: see Short Stay Collaborative assessment Medical History: Significant History (Asthma) History of Previous Operations: No relevant previous surgery Allergies: Allergies Allergy/AdvReac Type Severity Reaction Status Date / Time Seasonal Allergies Allergy Mild Runny Nose Verified 01/29/25 08:58 Review of Systems Sugical H&P ROS: Negative: Constitution, Cardiovascular, Respiratory, Neurological, Psychiatric, Hem-Onc, Allergic/Immunologic, Gastrointestinal, Genitourinary, Musculoskeletal, Integumentary, Endocrine and Eyes/Ears/Nose/Throat Exam Surgical H&P Exam: Normal: HEENT, Normal: Heart, Normal: Lungs, Normal: Extremities, Normal: Abdomen, Normal: Skin and Normal: Neurological Plan Diagnosis/Plan: Unchanged I have reviewed the history and physical and performed a pertinent physical examination on my patient. No changes have occurred unless specified. Time Spent With Patient Time: Total time managing care of this patient today ____ minutes.
--- NOTE | 2025-01-29 10:01 | P.CONAN_ITS ---
Documented by User: Bhavana Pabon NP 01/28/25 13:04 HPI - Anesthesia Eval Consult details Narrative: 29yo M for Colonoscopy Smokes marijuana daily - encouraged to hold 3 days preop by GI office [facility] Past Medical History Medical History Asthma Family History Family History Mother Metastatic colon cancer to liver Surgical History Surgical History (Updated 01/29/25 @ 08:57 by Lizzie Rinaldi RN) Hx of wisdom tooth extraction Social History Social History Household Members Other:: sister Are you a primary care coordinator to a significant other at home: No Do you presently have visiting nurse or other home services: No Alcohol intake: current Comment: Socially Patient Tobacco Use Status: Never used Tobacco Tobacco use type: Cigar Substance Use Type: Marijuana Substance Use Frequency: Daily Have you been hit, kicked, punched, or otherwise hurt by someone within the past year? If so, by whom?: No Are you DNR?: No Advance Directives: No Advance Directives Information Provided: Yes Poor oral hygiene: No Meds Allergies Allergy/AdvReac Type Severity Reaction Status Date / Time Seasonal Allergies Allergy Mild Runny Nose Verified 01/29/25 08:58 Home Medications ?Medication ?Instructions ?Recorded ?Confirmed ?Last Taken ?Type albuterol sulfate 90 mcg/actuation 2 inh inhalation Q6H PRN 11/08/24 01/29/25 Unknown History breath activated powder inhaler Inflammation cetirizine 10 mg capsule (Zyrtec) 10 mg PO DAILY PRN Allergic 11/08/24 01/29/25 Unknown History Symptoms fluticasone propionate 230 2 puff inhalation BID 11/08/24 01/25/25 Unknown History mcg-salmeterol 21 mcg/actuation HFA inhaler (Advair HFA) triamcinolone acetonide 0.1 % appl topical 11/08/24 Unknown History topical cream Exam Height,Weight and Vital Signs: Height 5 ft 10 in Weight 77.111 kg Assessment and Plan Assessment Anesthesia Assessment: Chart Reviewed Documented by User: Eugenia Ellsworth DO 01/29/25 10:04 [facility] Past Medical History Medical History Asthma Family History Family History Mother Metastatic colon cancer to liver Family history of problems with anesthesia: No Surgical History Surgical History (Updated 01/29/25 @ 08:57 by Lizzie Rinaldi RN) Hx of wisdom tooth extraction History of Problems with Anesthesia: No Social History Social History Household Members Other:: sister Are you a primary care coordinator to a significant other at home: No Do you presently have visiting nurse or other home services: No Alcohol intake: current Comment: Socially Patient Tobacco Use Status: Never used Tobacco Tobacco use type: Cigar Substance Use Type: Marijuana Substance Use Frequency: Daily Have you been hit, kicked, punched, or otherwise hurt by someone within the past year? If so, by whom?: No Are you DNR?: No Advance Directives: No Advance Directives Information Provided: Yes Poor oral hygiene: No Meds Allergies Allergy/AdvReac Type Severity Reaction Status Date / Time Seasonal Allergies Allergy Mild Runny Nose Verified 01/29/25 08:58 Home Medications ?Medication ?Instructions ?Recorded ?Confirmed ?Last Taken ?Type albuterol sulfate 90 mcg/actuation 2 inh inhalation Q6H PRN 11/08/24 01/29/25 Unknown History breath activated powder inhaler Inflammation cetirizine 10 mg capsule (Zyrtec) 10 mg PO DAILY PRN Allergic 11/08/24 01/29/25 Unknown History Symptoms fluticasone propionate 230 2 puff inhalation BID 11/08/24 01/25/25 Unknown History mcg-salmeterol 21 mcg/actuation HFA inhaler (Advair HFA) triamcinolone acetonide 0.1 % appl topical 11/08/24 Unknown History topical cream Exam Exam Date and Time: 01/29/25 0950 Height,Weight and Vital Signs: Height 5 ft 10 in Weight 77.111 kg Vital Signs Temperature 97.6 F 01/29/25 09:12 Pulse Rate 66 01/29/25 09:12 Respiratory Rate 18 01/29/25 09:12 Blood Pressure 115/79 01/29/25 09:12 Pulse Oximetry 98 01/29/25 09:12 Oxygen Delivery Method Room Air 01/29/25 09:12 Temperature 97.6 F 01/29/25 09:12 Pulse Rate 66 01/29/25 09:12 Respiratory Rate 18 01/29/25 09:12 Blood Pressure 115/79 01/29/25 09:12 Pulse Oximetry 98 01/29/25 09:12 Oxygen Delivery Method Room Air 01/29/25 09:12 Airway Mallampati Class: I TM Dist: >3cm Neck ROM: Full Heart: S1S2 Lungs: Bilateral wheezing Assessment and Plan Assessment Anesthesia Assessment: Anesthesia Plan Discussed and Chart Reviewed Final Anesthetic Review Family History of Problems with Anesthesia: No History of Problems with Anesthesia: No NPO: Yes ASA Class: II Final Preanesthetic Review: No Changes in Pt Med Stat, Meds/Allgs Chart Reviewed, Consent Obtained/Reviewed and Anes Risks/Benef Reviewed Patient Risk: Low Procedure Risk: Low Anesthetic Plan Anesthetic Plan: MAC: and Agree w/ Assess. and Plan Disposition: Standard PACU
--- NOTE | 2025-01-29 10:07 | P.OPN-COLO_ITS ---
Colonoscopy Operative Note Operative Note Date of Service: 01/29/25 Narrative: Operative Information Procedure Description: Colonoscopy Indication: screening, FH of CRC in mother Anesthesia: MAC COLONOSCOPY Instrument: Olympus variable stiffness pediatric scope 190L Colonoscopy Monitoring: Vital signs and clinical assessment, continuous EKG monitoring, Pulse oximetry, Carbon Dioxide monitoring and blood pressure monitoring were done throughout the procedure. Colon withdrawal time was 6 minutes. Procedure: The patient was placed in the left lateral decubitis position and pre-procedure medications were administered. After a digital rectal examination of the ano-rectum, the video colonoscope was inserted into the rectum and advanced through the colon to the cecum/TI. The colonoscope was slowly withdrawn in a retrograde panoramic fashion and the colon mucosa was carefully examined including a retroflexed view of the rectum. Findings and interventions are described below. Procedure Difficulty: easy Findings: Terminal Ileum-normal Cecum:normal right sided retroflexion- normal Ascending Colon: normal Transverse Colon -normal Descending Colon:normal Sigmoid Colon: normal Rectum: Retroflexion with small internal hemorrhoids seen, grade I Anorectum - normal Intervention: none Colon preparation: [place] Bowel Preparation Scale Right colon; 2 Transverse colon: 2 Left colon; 3 (0 = Unprepared colon segment with mucosa not seen due to solid stool that cannot be cleared. 1 = Portion of mucosa of the colon segment seen, but other areas of the colon segment not well seen due to staining, residual stool and/or opaque liquid. 2 = Minor amount of residual staining, small fragments of stool and/or opaque liquid, but mucosa of colon segment seen well. 3 = Entire mucosa of colon segment seen well with no residual staining, small fragments of stool or opaque liquid) Impression and Post Procedure Diagnosis: internal hemorrhoids Plan: High fiber diet leaflet Avoid straining at stool, epsom salts and sitz bath, anusol supps or cream Repeat Colonoscopy in 5 years due to FH or earlier if clinically indicated recommend EGD due to persistent nausea Above findings were reviewed with the patient and relevant handouts were provided if indicated.
[2025-01-29 10:12] VITALS: BP 92/53; PULSE 106; RESP 20; TEMP 36.5; O2SAT 97
[2025-01-29 10:27] VITALS: BP 107/54; PULSE 98; RESP 20; O2SAT 96
[2025-01-29 10:42] VITALS: BP 121/71; PULSE 95; RESP 16; O2SAT 96
== END 2025-01-29 11:04 | disposition home or self-care (01) ==
PROVIDERS: Visit Provider Internal Medicine Gastroenterology
PROC: 0DJD8ZZ Inspection of Lower Intestinal Tract, Via Natural or Artificial Opening Endoscopic (ICD-10-PCS; CPT 45378; principal; 2025-01-29 11:00)
DX: Z12.11 Encounter for screening for malignant neoplasm of colon (principal); K64.0 First degree hemorrhoids; Z80.0 Family history of malignant neoplasm of digestive organs; R14.0 Abdominal distension (gaseous); J45.909 Unspecified asthma, uncomplicated; F17.200 Nicotine dependence, unspecified, uncomplicated; F12.90 Cannabis use, unspecified, uncomplicated; K21.9 Gastro-esophageal reflux disease without esophagitis; Z79.899 Other long term (current) drug therapy
CPT/HCPCS: 45378; J2003; J2250; J2704

== ENCOUNTER → 2025-01-29 08:26 | Outpatient (BNV) | payer OTHER, SELFPAY | PROVIDERS: Visit Provider Internal Medicine Gastroenterology | DX: Z12.11 Encounter for screening for malignant neoplasm of colon (principal); Z80.0 Family history of malignant neoplasm of digestive organs; K64.8 Other hemorrhoids | CPT/HCPCS: 45378 ==